=== PATIENT | female | born 1995 | race Caucasian/White ===

== ENCOUNTER 2024-07-18 08:41 | Outpatient (CLI) | payer BC, SELFPAY ==
--- OUTSIDE RECORDS SUMMARY | 2024-07-18 09:08 | XMS_ITS | Encounter Summary ---
Author Organization [facility] Healthcare Address [address] [place] [address] Care Team Providers Care Front Office Associate Name Role Phone Unknown, Notinfile Primary Care Provider Unavail able Encounter Details Date Type Department Care Team ([facility] st Contact Info) Description 07/04/2024 Results Follow-Up [facility] Medical Group Convenient Care at [address] [place] [address] Demarcus Jo NP [address] [facility] [address] [place] [address] Social History Tobacco Use Types Packs/Day Years Used Date Smoking Tobacco: Never Smokeless Tobacco: Never Comments Unknown Sex and Gender Information Value Date Recorded Sex Assigned at Not on file 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 Pt verbalized understanding. documented in this encounter Plan of Treatment Not on file documented as of this encounter Visit Diagnoses Not on filedocumented in this encounter Care Teams Front Office Associate Relationship Specialty Start Date End Date Unknown, Zaria PCP - General 06/08/21 documented as of this encounter
--- OUTSIDE RECORDS SUMMARY | 2024-07-18 09:08 | XMS_ITS | Continuity of Care Document ---
Author Organization [facility] Address [address] [place] [address] [address] [place] [address] Phone Care Team Providers Care Landing Worker Name Role Phone July Paiz Unavailable Unavailable Advance Directives Directive Yes / No Effective Date File Name No Information Encounters Encounter Description Practice Location Reason(s) For Visit Diagnoses Date Provider Providers Copied on Encounter [facility], [address] [place] [address] [address], [place], [place], [id number], tel:[phone] [facility] No Information Sep-2 4-200 1 Izabel Mcdowell. [address] , [address], [place], [address], [place]. tel:[phone] Referring Provider: Gabriela Walton [address], [place], [address]. tel:[phone] Family History Family Member Type Diagnosis Age At Onset No Information Payers Payer name Insurance type Covered green party ID Authoriza tion(s) No Information Social History Type Description Quantity Date Captured Comments Sex Female Smoking Status No Information Chief Complaint And Reason For Visit No Information Reason For Referral Reason For Referral No Information History Of Present Illness Encounter Date Complaint History Of Prese nt Illness No Information Functional Status Date Functional Assessmen t No Information Instructions Date Instruction Additional Infor mation No Information Assessments Type Assessment Date No Information Patient Care Teams Name Effective Dates (start - stop) Status Members No Information
--- OUTSIDE RECORDS SUMMARY | 2024-07-18 09:09 | XMS_ITS | Encounter Summary ---
Author Organization [facility] Address [address] [place] [address] Care Team Providers Care Art Gilder Name Role Phone Unavailable Primary Care Provider Unavailabl e Encounter Details Date Type Department Care Team (Late st Contact Info) Description 05/22/2008 Outpatient Historical [place] [address] [facility] [place] [address] Social History Tobacco Use Types Packs/Day Years Used Date Smoking Tobacco: Never Assessed Comments Unknown Sex and Gender Information Value Date Recorded Sex Assigned at Not on file Legal Sex Female 5:41 AM SPECTROGRAPHER Gender Identity Not on file Sexual Orientation Not on file documented as of this encounter Plan of Treatment Not on file documented as of this encounter Procedures Procedure Name Priority Date/Time Associated Diagnosis Comments DRUGS OF ABUSE W/REFLEX THC QUANT Routine 05/22/2008 12:45 PM SPECTROGRAPHER documented in this encounter Results * DRUGS OF ABUSE W/REFLEX THCSQ (05/22/2008 12:45 PM SPECTROGRAPHER) COMMENT, TOXICOLOGY See Separate Comment [facility] Comment: Urine sample was not handled as a legal specimen and was received without a chain of custody. The result should be used only for medical purposes. False positive and erroneous results can occur due to cross-reacting substances and other factors. Depending on the clinical context, confirmation of all presumptive positive results by a more specific alternate method is recommended. A negative result indicates the analyte, if present, is below the screening threshold. Drug Ref. Range Screening Threshold Amphetamines Negative 1000 ng/mL Barbiturates Negative 200 ng/mL Benzodiazepines Negative 300 ng/mL Cannabinoids Negative 50 ng/mL Cocaine Metabolites Negative 300 ng/mL Opiates Negative 300 ng/mL Phencyclidine Negative 25 ng/mL The cut-off threshold, known cross-reactive compounds, drugs,and specificity information for each of the urine drugs of abuse are available on the [facility] Intranet at: [email or web address] for [email or web address]/[email or web address].nsf Select: Lab Policies & Procedures Select: Drugs of Abuse-[facility] To inquire about any potential cross-reactivity of a specific drug not listed at this site, please contact the Chemistry Lab at . AMPHETAMINE QUAL, URINE Negative Negative [facility] BARBITURATE QUAL, URINE Negative Negative [facility] BENZODIAZEPINE QUAL, URINE Negative Negative [facility] CANNABINOIDS QUAL, URINE Negative Negative [facility] COCAINE QUAL URINE Negative Negative [facility] OPIATE QUAL, URINE Negative Negative [facility] PCP QUAL, URINE Negative Negative [facility] Urine specimen (specimen) 05/22/2008 12:45 PM SPECTROGRAPHER 05/22/2008 4:00 PM SPECTROGRAPHER us Kavitha Bustillos MD URINE ORDERABLES Edited INTERFACE SYSTEM Refer to clinic/hospital department [facility] CLIA# [id number] [address] [place] [address] documented in this encounter Visit Diagnoses Not on filedocumented in this encounter
--- OUTSIDE RECORDS SUMMARY | 2024-07-18 09:09 | XMS_ITS | Clinical Summary ---
Author Organization [address] Address [address] [place] [address] Care Team Providers Care Police Shift Commander Name Role Phone Unknown, Notinfile Primary Care Provider Unavail able Allergies Active Allergy Reactions Criticality Noted Date Comments Amoxicillin Other (See comments) Low Reaction: Medications hydrocortisone (ANUSOL-HC) 2.5 % rectal cream APPLY RECTALLY TO THE AFFECTED AREA TWICE DAILY NEEDED FOR HEMORRHOIDS 2 Active sertraline (ZOLOFT) 100 mg tablet Take 1 tablet (100 mg total) by mouth daily 1 Active traZODone (DESYREL) 50 mg tablet Take 1 tablet (50 mg total) by mouth nightly 1 Active benzonatate (TESSALON) 200 mg capsuleIndicati ons:Acute cough Take 1 capsule (200 mg total) by mouth 3 (three) times a day as needed for cough 30 capsule 5 Active azithromycin (ZITHROMAX) 250 mg tabletIndicatio ns:Acute cough Take 2 tabs (500 mg) by mouth today, than 1 tab (250 mg) daily for 4 days. 6 tablet 5 07/10/19 25 predniSONE (DELTASONE) 20 mg tabletIndicatio ns:Acute cough Take 1 tablet (20 mg) by mouth 2 (two) times a day for 5 days 10 tablet 5 07/10/19 25 Active Problems Problem Noted Date Diagnosed Date Recurrent major depressive disorder 02/25/2012 Encounters Date Type Department Care Team Description 07/04/2024 1:15 PM CDT Ancillary Procedure [facility] Medical Group Imaging at [address] [id number] Acute cough 07/04/2024 12:45 PM CDT Office Visit [facility] Medical Group Convenient Care at [address] [address] Patricia Armstrong NP Acute cough (Primary Dx); Tenderness of chest wall 07/04/2024 Results Follow-Up [facility] Medical Group Convenient Care at [address] [address] Demarcus Jo NP from Last 3 Months Medical History Medical History Date Comments Personal history of affective disorder Episodic Mood Disorders - (Added by TW Conv) Social History Tobacco Use Types Packs/Day Years Used Date Smoking Tobacco: Never Smokeless Tobacco: Never Comments Unknown Sex and Gender Information Value Date Recorded Sex Assigned at Not on file 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 Gender Identity Not on file Sexual Orientation Not on file Obstetrics History Last Filed Vital Signs Vital Sign Reading Time Taken Comments Blood Pressure 103/71 07/04/2024 12:54 PM CDT Pulse 74 07/04/2024 12:54 PM CDT Temperature 36.8 C (98.2 F) 07/04/2024 12:54 PM CDT Respiratory Rate 16 07/04/2024 12:54 PM CDT Oxygen Saturation 97% 07/04/2024 12:54 PM CDT Inhaled Oxygen Concentration - - Weight 58.6 kg (129 lb 3.2 oz) 07/04/2024 12:54 PM CDT Height 154.9 cm (5' 0.98 ) 07/04/2024 12:54 PM C DT Body Mass Index 24.42 07/04/2024 12:54 PM CDT Plan of Treatment Health Maintenance Due Date Last Done Comments Cervical Cancer Screening 1993 Depression Screening 1993 Hepatitis C Screening 1993 DTaP/Tdap/Td Vaccine (1 - Tdap) 2004 Varicella Vaccines (1 of 2 - 13+ 2-dose series) 2006 Hepatitis B Screening 07/30/2011 Regular Well Visit/Exam 18-64 07/30/2011 Covid-19 Vaccine (2023-2 5 season) 2023 07/19/2020, 06/26/2020 Influenza Vaccine (Season Ended) 2024 HPV Vaccines Aged Out No longer eligi ble based on patient's age to complete this topic Pneumococcal vaccine <65 Aged Out No longer eligible based on patient's age to complete this topic Procedures Procedure Name Priority Date/Time Associated Diagnosis Comments XR CHEST PA LATERAL 2 VIEWS Schedule LENNY, Read LENNY (Appt Today, Awaiting Results) 07/04/2024 1:38 PM CDT Acute cough from Last 3 Months Results * XR Chest Pa Lateral 2 Views (07/04/2024 1:38 PM CDT) Anatomical Region Laterality Modality Body, Chest N/A Digital Radiogra phy 07/04/2024 7:35 PM CDT Narrative 07/04/2024 7:36 PM CDT EXAM DESCRIPTION: XR CHEST PA LATERAL 2 VIEWS REASON FOR STUDY: cough Pt complains of cough for nine days. No surgery to heart, lungs, or chest. Smoker for 10 years, 1/2 PPD. TECHNIQUE: PA and lateral radiographic view(s) of the chest. COMPARISON: None FINDINGS: LUNGS: There is a subtle 11 mm nodular structure between the left 7th and 8th ribs near the left hilum. No pneumothorax or pleural effusion is present. HEART/MEDIASTINUM: Cardiac silhouette normal in size. Mediastinal and hilar contours appear normal. LINES/TUBES: None. BONES: No acute osseous abnormality. IMPRESSION: 1. Possible left perihilar nodule. A contrast-enhanced CT of the chest is recommended for further evaluation. THIS IS AN ELECTRONICALLY VERIFIED FINAL REPORT 07/04/2024 7:36 PM - Electronically signed by Bobo Galvan M.D. BS T: Report ID: [id number] Reading Location: [id number] Procedure Note Bobo Galvan MD - 07/04/2024 EXAM DESCRIPTION: XR CHEST PA LATERAL 2 VIEWS REASON FOR STUDY: cough Pt complains of cough for nine days. No surgery to heart, lungs, or chest. Smoker for 10 years, 1/2 PPD. TECHNIQUE: PA and lateral radiographic view(s) of the chest. COMPARISON: None FINDINGS: LUNGS: There is a subtle 11 mm nodular structure between theleft 7th and 8th ribs near the left hilum. No pneumothorax or pleural effusionis present. HEART/MEDIASTINUM: Cardiac silhouette normal in size. Mediastinal andhilar contours appear normal. LINES/TUBES: None. BONES: No acute osseous abnormality. IMPRESSION: 1. Possible left perihilar nodule. A contrast-enhanced CT ofthe chest is recommended for further evaluation. THIS IS AN ELECTRONICALLY VERIFIED FINAL REPORT 07/04/2024 7:36 PM - Electronically signed by Bobo Galvan M.D. BS T: Report ID: [id number] Reading Location: [place] [address] Patricia Armstrong DIRECTOR OF COMMUNICATIONS IMG XR PROCEDURES Final Re sult from Last 3 Months Insurance [employer] PPO [place] Care Teams Police Shift Commander Relationship Specialty Start Date End Date Unknown, Notinfile PCP - General 06/08/21
--- OUTSIDE RECORDS SUMMARY | 2024-07-18 09:09 | XMS_ITS | Clinical Summary ---
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
--- OUTSIDE RECORDS SUMMARY | 2024-07-18 09:09 | XMS_ITS | Encounter Summary ---
Author Organization [employer] Address 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
--- OUTSIDE RECORDS SUMMARY | 2024-07-18 09:09 | XMS_ITS | Referral Summary ---
Author Organization [address] Address [address] [place] [address] Care Team Providers Care Dewatering Filtering Supervisor Name Role Phone Unknown, Notinfile Primary Care Provider Unavail able Encounters Date Type Department Care Team Description 07/04/2024 Results Follow-Up [facility] Medical [facility] Convenient Care at [address] [address] Demarcus Jo NP 07/04/2024 1:15 PM CDT Ancillary Procedure [facility] Imaging at [address] [address] Acute cough 07/04/2024 12:45 PM CDT Office Visit [facility] Medical [facility] Convenient Care at [address] [address] Patricia Armstrong NP Acute cough (Primary Dx); Tenderness of chest wall from Last 3 Months Allergies Active Allergy Reactions Criticality Noted Date [...] Diagnosed Date Recurrent major depressive disorder 02/25/2012 Social History Tobacco Use Types Packs/Day Years Used Date Smoking Tobacco: Never Smokeless Tobacco: Never Comments Unknown Sex and Gender Information Value Date Recorded Sex Assigned at Not on file 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 BS T: Report ID: [id number] Reading Location: [id number] Procedure Note Bobo Galvan MD - 07/04/2024 [...] Bobo Galvan M.D. BS T: Report ID: [id number] Reading Location: [id number] Patricia Armstrong MACHINE REPAIR PERSON IMG XR PROCEDURES Final Re sult from Last 3 Months Insurance [employer] [place]F PPO [place] Care Teams Dewatering Filtering Supervisor Relationship Specialty Start Date End Date Unknown, Notinfile PCP - General 06/08/21
[2024-07-18 11:25] LABS: Basophils Percent Auto 0.7 % (0.2-1.2); Eosinophils Absolute Auto 0.3 K/mm3 (0-0.3); Eosinophils Percent Auto 5.4 % (0-4.4); Hematocrit 43.8 % (37.0-47.0); Immature Granulocyte Absolute 0.02 K/mm3 (0.00-0.031); Immature Granulocyte Percent A 0.3 % (0-0.5); Immature Platelet Fraction Pct 2.9 % (0.9-11.2); Lymphocytes Absolute Auto 2.03 K/mm3 (0.9-3.2); Lymphocytes Percent Auto 33.3 % (18.3-44.2); Mean Corpuscular Volume 100.2 fl (80-100); Mean Platelet Volume 10.5 fl (7.4-10.4); Monocytes Absolute Auto 0.5 K/mm3 (0.1-0.6); Monocytes Percent Auto 8.4 % (2.6-8.5); Neutrophils Absolute Auto 3.2 K/mm3 (1.3-6.7); Neutrophils Percent Auto 51.9 % (45.5-73.1); Platelet Count Result 313 k/mm3 (150-375); Red Blood Count 4.37 M/mm3 (4.2-5.4); Red Cell Distribution Width 13.2 % (11.5-14.5); White Blood Count 6.1 K/mm3 (4.5-10.0)
[2024-07-18 12:41] LABS: Alanine Aminotransferase 13 U/L (6-35); Albumin Level 4.5 g/dL (3.5-5.1); Alkaline Phosphatase 58 U/L (38-126); Anion Gap 9 mmol/L (4-12); Aspartate Amino Transferase 37 U/L (14-36); Bilirubin,Total 0.8 mg/dL (0.2-1.3); Blood Urea Nitrogen 12 mg/dL (7-17); Calcium 9.3 mg/dL (8.4-10.2); Carbon Dioxide 28 mmol/L (22-30); Chloride 102 mmol/L (98-107); Cholesterol 174 mg/dL (0-200); Estimated Glomerular Filt Rate > 60; Glucose 86 mg/dL (65-110); HDL Direct 60 mg/dL; Potassium 4.3 mmol/L (3.4-5.0); Sodium 139 mmol/L (137-145); Triglycerides 79 mg/dL (<150)
[2024-07-18 12:52] LABS: LDL Cholesterol Direct 74 mg/dL
[2024-07-18 12:57] LABS: Beta HCG Quantitative < 2.39 mIU/ML
[2024-07-18 13:37] LABS: Hepatitis C Virus Antibody Negative (Negative)
[2024-07-18 13:40] LABS: HIV 1/2 Ab P24 Ag Result Negative (Negative)
[2024-07-18 13:49] LABS: Chlamydia trachomatis NOT DETECTED (NOT DETECTE); Neisseria gonorrhoeae PCR NOT DETECTED (NOT DETECTE)
[2024-07-19 09:38] LABS: Prolactin 15.6 ng/mL
== END 2024-07-18 08:42 | disposition home or self-care (01) ==
LOC: ANHGOSHLAB 08:43
PROVIDERS: PCP Pediatrics; Visit Provider Family Medicine
DX: Z13.6 Encounter for screening for cardiovascular disorders (principal); R00.2 Palpitations; Z13.0 Encounter for screening for diseases of the blood and blood-forming organs and certain disorders involving the immune mechanism; Z11.59 Encounter for screening for other viral diseases; N64.3 Galactorrhea not associated with childbirth; Z13.1 Encounter for screening for diabetes mellitus
CPT/HCPCS: 36415; 80053; 80061; 83036; 84146; 84443; 84702; 85025; 85055; 86703; 86803; 87491; 87591; G0432

== ENCOUNTER 2024-07-27 14:54 | Outpatient (CLI) | payer BC, SELFPAY ==
[2024-07-27 15:56] LABS: D Dimer < 0.27 ug/mL (<0.48)
--- OUTSIDE RECORDS SUMMARY | 2024-07-27 16:10 | XMS_ITS | Encounter Summary ---
Author Organization [facility] Address [address] [place] [address] Care Team Providers Care Earth Science Technician Name Role Phone Unavailable Primary Care Provider Unavailabl e Encounter Details Date Type Department Care Team (Late st Contact Info) Description 05/22/2008 Outpatient Historical [place] [address] [facility] [place] [address] Social History Tobacco Use Types Packs/Day Years Used Date Smoking Tobacco: Never Assessed Comments Unknown Sex and Gender Information Value Date Recorded Sex Assigned at Not on file Legal Sex Female 5:41 AM SPORTS MEDICINE TRAINER Gender Identity Not on file Sexual Orientation Not on file documented as of this encounter Plan of Treatment Not on file documented as of this encounter Procedures Procedure Name Priority Date/Time Associated Diagnosis Comments DRUGS OF ABUSE W/REFLEX THC QUANT Routine 05/22/2008 12:45 PM SPORTS MEDICINE TRAINER documented in this encounter Results * DRUGS OF ABUSE W/REFLEX THCSQ (05/22/2008 12:45 PM SPORTS MEDICINE TRAINER) COMMENT, TOXICOLOGY See Separate Comment [facility] Comment: Urine sample was not handled [...] drugs of abuse are available on the [facility] Intranet at: [email or web address] Select: Lab Policies & Procedures Select: Drugs of Abuse-[facility] To inquire about any potential cross-reactivity of a specific drug not listed at this site, please contact the Chemistry Lab at . AMPHETAMINE QUAL, URINE Negative Negative [facility] BARBITURATE QUAL, URINE Negative Negative [facility] BENZODIAZEPINE QUAL, URINE Negative Negative [facility] CANNABINOIDS QUAL, URINE Negative Negative [facility] COCAINE QUAL URINE Negative Negative [facility] OPIATE QUAL, URINE Negative Negative [facility] PCP QUAL, URINE Negative Negative [facility] Urine specimen (specimen) 05/22/2008 12:45 PM SPORTS MEDICINE TRAINER 05/22/2008 4:00 PM SPORTS MEDICINE TRAINER us Kavitha Bustillos MD URINE ORDERABLES Edited INTERFACE SYSTEM Refer to clinic/hospital department [facility] CLIA# [id number] [address] [place] [address] documented in this encounter Visit Diagnoses Not on filedocumented in this encounter
--- OUTSIDE RECORDS SUMMARY | 2024-07-27 16:10 | XMS_ITS | Encounter Summary ---
Author Organization [employer] Address 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
--- OUTSIDE RECORDS SUMMARY | 2024-07-27 16:10 | XMS_ITS | Referral Summary ---
Author Organization [address] Address [address] [place] [address] Care Team Providers Care Dairy Husbandry Worker Name Role Phone Unknown, Notinfile Primary Care Provider Unavail able Encounters Date Type Department Care Team Description 07/04/2024 Results Follow-Up [facility] Medical [facility] Convenient Care at [address] [address] Demarcus Jo NP 07/04/2024 1:15 PM CDT Ancillary Procedure [facility] Imaging at [address] [address] Acute cough 07/04/2024 12:45 PM CDT Office Visit [facility] Medical [facility] Convenient Care at [address] [address] Patricia Armstrong NP Acute cough [...] on file 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 BS T: Report ID: [id number] Reading Location: [id number] Procedure Note Bobo Galvan MD - 07/04/2024 [...] Bobo Galvan M.D. BS T: Report ID: [id number] Reading Location: [id number] Patricia Armstrong CLEAN UP WORKER IMG XR PROCEDURES Final Re sult from Last 3 Months Insurance [employer] [place]F PPO [place] Care Teams Dairy Husbandry Worker Relationship Specialty Start Date End Date Unknown, Notinfile PCP - General 06/08/21
--- OUTSIDE RECORDS SUMMARY | 2024-07-27 16:10 | XMS_ITS | Clinical Summary ---
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
--- OUTSIDE RECORDS SUMMARY | 2024-07-27 16:10 | XMS_ITS | Continuity of Care Document ---
Author Organization [facility] Address [address] [place] [address] [address] [place] [address] Phone Care Team Providers Care Agronomy Location Manager Name Role Phone July Paiz Unavailable Unavailable Advance Directives Directive Yes / No Effective Date File Name No Information Encounters Encounter Description Practice Location Reason(s) For Visit Diagnoses Date Provider Providers Copied on Encounter [facility], [address] [place] [address] [address], [place], [place], [id number], tel:[phone] [facility] No Information Sep-2 4-200 1 Iz[address]. [address] , [address], [place], [address], [place]. tel:[phone] Referring Provider: Gabriela Walton [address], [place], [address]. tel:[phone] Family History Family Member Type Diagnosis Age At Onset No Information Payers Payer name Insurance type Covered democrat ID Authoriza tion(s) No Information Social History [...]
--- OUTSIDE RECORDS SUMMARY | 2024-07-27 16:10 | XMS_ITS | Encounter Summary ---
Author Organization [facility] Healthcare Address [address] [place] [address] Care Team Providers Care Sales Representative Livestock Name Role Phone Unknown, Notinfile Primary Care Provider Unavail able Encounter Details Date Type Department Care Team ([facility] st Contact Info) Description 07/04/2024 Results Follow-Up [facility] Medical Group Convenient Care at [address] [place] [address] Demarcus Jo NP [facility] [address] [place] [address] Social History Tobacco Use Types Packs/Day Years Used Date Smoking Tobacco: Never Smokeless Tobacco: Never Comments Unknown Sex and Gender Information Value Date Recorded Sex Assigned at Not on file Legal Sex Female 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
--- OUTSIDE RECORDS SUMMARY | 2024-07-27 16:10 | XMS_ITS | Clinical Summary ---
Author Organization [address] Address [address] [place] [id number] Care Team Providers Care Retort Forker Name Role Phone Unknown, Notinfile Primary Care [...] Description 07/04/2024 1:15 PM CDT Ancillary Procedure [facility] at [address] [id number] Acute cough 07/04/2024 12:45 PM CDT Office Visit [facility] at [address] [phone] Patricia Armstrong NP Acute cough (Primary Dx); Tenderness of chest wall 07/04/2024 Results Follow-Up [facility] at [address] [phone] Demarcus Jo NP from Last 3 Months Medical History Medical History Date Comments Personal history of affective disorder Episodic Mood Disorders - (Added by [facility] Conv) Social History Tobacco Use Types Packs/Day Years Used Date Smoking Tobacco: Never Smokeless Tobacco: Never Comments Unknown Sex and Gender Information Value Date Recorded Sex Assigned at Not on file 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 BS T: Report ID: [id number] Reading Location: [id number] Procedure Note Bobo Galvan MD - 07/04/2024 [...] Bobo Galvan M.D. BS T: Report ID: [id number] Reading Location: [place] [address] Patricia Armstrong MICROWAVE SUPERVISOR IMG XR PROCEDURES Final Re sult from Last 3 Months Insurance [employer] [place] Care Teams Retort Forker Relationship Specialty Start Date End Date Unknown, Notinfile PCP - General 06/08/21
[2024-07-27 18:26] LABS: Folic Acid 7.2 ng/mL (2.76->20)
== END 2024-07-27 14:55 | disposition home or self-care (01) ==
PROVIDERS: PCP Family Medicine; Visit Provider Family Medicine
DX: R00.2 Palpitations (principal); D75.89 Other specified diseases of blood and blood-forming organs
CPT/HCPCS: 36415; 82607; 82746; 85380; 93242

== ENCOUNTER 2024-08-09 10:48 | Outpatient (CLI) | payer BC, SELFPAY ==
--- NOTE | ~2024-08-09 | CT_ITS ---
Clinical Indication: Abnormal findings on diagnostic imaging, 11 mm left lung nodule CT Scan of the Chest with Contrast: Technique: Contiguous sections were acquired throughout the chest after intravenous administration of 75 cc of Omnipaque 350. Dose reduction technique was used on this scan by utilizing automated exposu re control and iterative reconstruction technique. The dose-length product (DLP) was 145.10 mGy-cm. Findings: There is no evidence of any significant mediastinal, hilar or axillary lymphadenopathy. There is no f illing defect in the pulmonary arterial tree to suggest pulmonary embolus. There is no evidence of ao rtic dissection or aneurysm. There is no evidence of pleural or pericardial effusion. The lungs are clear. No pulmonary nodules or infiltrates are noted. Images through the upper abdomen reveal no abnormalities. Impression: No evidence of pulmonary embolus, aortic dissection, or aortic aneurysm. Clear lungs. Reviewed, dictated and finalized at [facility]. Impression: No evidence of pulmonary embolus, aortic dissection, or aortic aneurysm. Clear lungs.
== END 2024-08-09 10:49 | disposition home or self-care (01) ==
LOC: MICIMG 10:48
PROVIDERS: PCP Family Medicine; Visit Provider Family Medicine
DX: R93.89 Abnormal findings on diagnostic imaging of other specified body structures (principal)
CPT/HCPCS: 71260; Q9967